=== PATIENT | female | born 1960 | race Caucasian/White ===

== ENCOUNTER 2017-08-10 05:52 | Day surgery (SDC) | payer BC ==
[2017-08-10] MEDS ORDERED: Midazolam 1 MG/ML 2 ML SDV IV ONE ×3 (05:53→07:00)
[2017-08-10] MEDS ORDERED: fentaNYL 100 MCG/2 ML SDV IV ONE ×3 (05:53→06:59)
[2017-08-10] MEDS ORDERED: Sodium Chloride 0.9% 10 ML Syringe FLUSH PRN (06:00)
[2017-08-10] MEDS ORDERED: Dextrose 5%-0.45% NaCl 1,000 ML IV SCH (06:00)
[2017-08-10] MEDS ORDERED: fentaNYL 100 MCG/2 ML SDV ONE (06:17)
[2017-08-10] MEDS ORDERED: Midazolam 1 MG/ML 2 ML SDV ONE (06:17)
--- NOTE | 2017-08-10 08:39 | OR ---
DATE: 08/10/2017 PROCEDURES: Esophagogastroduodenoscopy, narrow-band imaging, and multiple pinch biopsies. INSTRUMENT USED: GIF-H180 Olympus video panendoscope. PREMEDICATIONS: No oral topical anesthesia used. Fentanyl 100 mcg intravenous, Versed 2 mg intravenous. Nasal O2 cannula. The procedure was done under pulse oximetry, BP recording, and tool hardener. INDICATION: The patient with known [place] esophagus. Surveillance esophagogastroduodenoscopy is performed for detection of any active erosive lesions. Biopsies to be obtained for any evidence of dysplasia. Endoscopic hemostasis therapy if needed. DESCRIPTION OF PROCEDURE: The scope was passed with ease. Adequate visualization of the esophagus was made from proximal to distal areas. No upper esophageal lesions identified. No distal esophageal stricture. No uphill or downhill esophageal varices. No [place] tear. No evidence of erosive esophagitis by [place] criteria. No esophageal polyp or tumor mass identified. [place] columnar epithelium was noted at around 34 cm distal to the oral verge. NBI views were obtained of the mucosa. Four-quadrant biopsies were taken at 2 cm distance apart and sent for any histopathologic evidence of dysplasia. NBI views were obtained. No esophageal polyp or tumor mass identified. Gastric fundus examination by retroflexion showed no polypoid lesions. No proximal gastric varices noted. No gastric ulcer, malignant mass, or vascular ectasia identified. Duodenal bulb showed no ulcer. Visualized second part of the duodenum was unremarkable. No bleeding was noted from any of the visualized areas at the completion of examination. Photographs were taken of the duodenal bulb, gastric antrum, fundus, and distal esophagus. IMPRESSION: [place] esophagus. The patient tolerated the procedure well. [facility] /[id number]
[2017-08-10 11:49] VITALS: BP 141/85
== END 2017-08-10 09:17 | disposition home or self-care (01) ==
LOC: DL.ENDO 05:52
PROVIDERS: ATTEND Internal Medicine Gastroenterology
DX: K22.70 Barrett's esophagus without dysplasia (principal); K20.9 Esophagitis, unspecified; E66.09 Other obesity due to excess calories; K21.9 Gastro-esophageal reflux disease without esophagitis
CPT/HCPCS: 43239; J2250; J3010; J7042

== ENCOUNTER 2019-07-28 05:55 | Day surgery (SDC) | payer BC ==
[~2019-07-28 05:55] MED LIST: Dextrose 5%-0.45% NaCl 1,000 ML IV SCH; Sodium Chloride 0.9% 10 ML Syringe FLUSH PRN
[2019-07-28] MEDS ORDERED: Midazolam 1 MG/ML 2 ML SDV IV ONE ×7 (05:56→07:05)
[2019-07-28] MEDS ORDERED: fentaNYL 100 MCG/2 ML SDV IV ONE ×7 (05:56→07:10)
[2019-07-28] MEDS ORDERED: fentaNYL 100 MCG/2 ML SDV ONE (06:42)
[2019-07-28] MEDS ORDERED: Midazolam 1 MG/ML 2 ML SDV ONE (06:42)
--- NOTE | 2019-07-28 08:13 | OR ---
DATE: 07/28/2019 PROCEDURE: Total colonoscopy. INSTRUMENT USED: PCF-H190DL Olympus video colonoscope. PREMEDICATIONS: Fentanyl 200 mcg intravenous, Versed 4 mg intravenous. Nasal O2 cannula. The procedure was done under pulse oximetry, BP recording, and real estate executive assistant. INDICATION: The patient with rectal bleeding. Colonoscopic examination is done for detection of any polypoid lesions and removal, endoscopic hemostasis therapy if needed. DESCRIPTION OF PROCEDURE: Initial rectal exam was unremarkable. Rigid anoscopy showed small internal hemorrhoids without bleeding from them. The colonoscope was passed with ease. Numerous scattered diverticula were noted in the distal left colon along with significant deformity. The scope was passed with ease up to the ileocecal area. Photographs were taken of the normal-appearing cecum identified by landmarks of appendiceal orifice and double-bulged ileocecal folds. No bleeding was noted from any of the visualized areas at the commencement of the examination. The bowel preparation was found to be adequate, [place] scale 3 in all the regions, total score 9. No stricture. No vascular ectasia. No large isolated ulcerations seen. No evidence of diffuse inflammatory bowel disease in the form of friability, contact bleeding, or ulcerations. No polyp or tumor mass identified. Probing the proximal sides of folds and flexures using adequate distention and clearing up the stool material, withdrawal of the scope was made, cecum to rectum time over 6 minutes. No bleeding was noted from any of the visualized areas at the completion of examination. IMPRESSION: 1. Internal hemorrhoids. 2. Diverticulosis. The patient tolerated the procedure well. [facility] /[id number]
[2019-07-28 09:24] VITALS: BP 143/78; PULSE 79
== END 2019-07-28 09:30 | disposition home or self-care (01) ==
LOC: DL.ENDO 05:55
PROVIDERS: ATTEND Internal Medicine Gastroenterology
DX: K64.8 Other hemorrhoids (principal); K57.31 Diverticulosis of large intestine without perforation or abscess with bleeding; E66.09 Other obesity due to excess calories; E78.00 Pure hypercholesterolemia, unspecified; K58.9 Irritable bowel syndrome, unspecified; D69.6 Thrombocytopenia, unspecified; M19.90 Unspecified osteoarthritis, unspecified site; Z68.41 Body mass index [BMI] 40.0-44.9, adult; Z79.899 Other long term (current) drug therapy
CPT/HCPCS: 45378; J2250; J3010; J7042; G0121

== ENCOUNTER 2021-03-18 06:13 | Day surgery (SDC) | payer BC ==
[~2021-03-18 06:13] MED LIST changes: +Midazolam 1 MG/ML 2 ML SDV ONE; +fentaNYL 100 MCG/2 ML SDV ONE
[2021-03-18] MEDS ORDERED: fentaNYL 100 MCG/2 ML SDV IV ONE ×3 (06:14→07:04)
[2021-03-18] MEDS ORDERED: Midazolam 1 MG/ML 2 ML SDV IV ONE ×3 (06:14→07:05)
[2021-03-18] MEDS ORDERED: Dextrose 5%-0.45% NaCl 1,000 ML IV SCH (06:45)
[2021-03-18 10:24] VITALS: BP 129/84; PULSE 86
== END 2021-03-18 09:20 | disposition home or self-care (01) ==
LOC: DL.ENDO 06:13
PROVIDERS: ATTEND Internal Medicine Gastroenterology
DX: K22.70 Barrett's esophagus without dysplasia (principal); Z01.812 Encounter for preprocedural laboratory examination; Z20.822 Contact with and (suspected) exposure to COVID-19
CPT/HCPCS: 43239; 87635; J2250; J3010; J7042; U0002

== ENCOUNTER 2021-12-04 12:13 | Emergency (ER) | payer BC ==
[2021-12-04 12:52] VITALS: BP 122/88; PULSE 104
[2021-12-04] MEDS ORDERED: Sodium Chloride 0.9% 10 ML Syringe FLUSH PRN (12:52)
[2021-12-04] MEDS ORDERED: Ketorolac 30 MG/ML SDV IVPUSH ONE (12:53)
[2021-12-04] MEDS ORDERED: Sodium Chloride 0.9% 1,000 ML IV ONE (13:02)
[2021-12-04 13:47] LABS: CHLORIDE,CL 99 mmol/L (98-107); ESTIMATED GFR 101 mL/min (>=60); SODIUM,NA 142 mmol/L (138-146)
== END 2021-12-04 14:45 | disposition home or self-care (01) ==
LOC: DL.ED 12:13
DX: N30.01 Acute cystitis with hematuria (principal); E66.9 Obesity, unspecified; E78.00 Pure hypercholesterolemia, unspecified; K21.9 Gastro-esophageal reflux disease without esophagitis; Z68.37 Body mass index [BMI] 37.0-37.9, adult; Z79.899 Other long term (current) drug therapy
CPT/HCPCS: 36415; 80053; 81001; 83605; 83690; 83735; 83880; 84443; 84484; 85025; 85379; 86140; 87086; 87088; 87186; 93005; 96361; 96374; 99285-25; J1885; J3490; J7030